=== PATIENT | male | born 1945 | race Caucasian/White ===

== ENCOUNTER 2020-08-19 06:29 | Inpatient (IN) | payer MEDICARE, OTHER ==
[~2020-08-19 06:29] MED LIST: BACLOFEN 10MG T10 MG PO; MELOXICAM15 MG PO; MOBIC7.5 MG PO; PERCOCET 5/3251 TAB PO; XARELTO10 MG PO
[2020-08-19] MEDS ORDERED: PERCOCET 5-3251 EACH PO (09:26)
[2020-08-20 07:06] LABS: BASOPHIL 0.1 % (0-2); EOSINOPHIL 0 % (0-7); HCT 36.3 % (42.0-52.0); HGB 12.1 g/dl (13.2-18.0); LYMPHOCYTE 4.8 % (15-48); MCH 31.3 pg (25.0-31.0); MCHC 33.3 g/dL (32.0-36.0); MONOCYTE 10.8 % (0-12); MPV 11.5 fL (6.0-9.5); NEUTROPHIL 83.7 % (41-80); NRBC 0; PLT 180 K/uL (150-400); RBC 3.86 M/uL (4.70-6.00); RDW 13.8 % (11.5-14.0); WBC 17.3 K/uL (4.0-10.5)
[2020-08-20 07:39] LABS: BUN/CREAT RATIO (CALC) 26.9 RATIO; CREATININE 0.78 mg/dL (0.67-1.17); POTASSIUM 4.1 mmol/L (3.5-5.1)
[2020-08-20] MEDS ORDERED: FEOSOL325 MG PO (09:12)
[2020-08-20] MEDS ORDERED: ASPIRIN81 MG PO (09:12)
== END 2020-08-20 10:45 | disposition home or self-care (01) | DRG 483 ==
LOC: FSDC 06:29 → FMS 06:29
PROVIDERS: ADMIT Orthopaedic Surgery
PROC: 0RRJ00Z Replacement of Right Shoulder Joint with Reverse Ball and Socket Synthetic Substitute, Open Approach (ICD-10-PCS; principal; 2020-08-19 08:30)
DX: M19.011 Primary osteoarthritis, right shoulder (principal); S46.811A Strain of other muscles, fascia and tendons at shoulder and upper arm level, right arm, initial encounter; Z96.652 Presence of left artificial knee joint; Z87.01 Personal history of pneumonia (recurrent); Z90.49 Acquired absence of other specified parts of digestive tract; Z98.890 Other specified postprocedural states; Z88.1 Allergy status to other antibiotic agents
CPT/HCPCS: 36415; 73020; 80048; 85025; 86850; 86900; 86901; 94010; 94762; 97162; 97166; 97530-GP; 97535; C1713; C1776; J0171; J1100; J1885; J2250; J2270; J2704; J2795; J3010; J3370; J7050; J7120; U0002